=== PATIENT | male | born 2000 | race Hispanic/Latino ===

== ENCOUNTER 2021-11-11 00:29 | Emergency (ER) | payer OTHER ==
[~2021-11-11] VITALS: Ht 177.8 cm; Wt 154.7 kg
[2021-11-11] MEDS ORDERED: KETOROLAC 60 MG VIAL (30MG/ML) IM ONE (02:30)
[2021-11-11] MEDS ORDERED: SOLU-MEDROL 125MG VIAL IM ONE (02:30)
[2021-11-11 03:07] VITALS: BP 148/86
[2021-11-11] MEDS ORDERED: IBUP-2070 PO (03:36)
[2021-11-11] MEDS ORDERED: CEPH500B PO (03:36)
[2021-11-11] MEDS ORDERED: CEPHALEXIN 500 MG CAPSULE PO ONE (04:00)
== END 2021-11-11 03:53 | disposition home or self-care (01) ==
LOC: EDH 00:29
DX: S90.852A Superficial foreign body, left foot, initial encounter (principal); J45.909 Unspecified asthma, uncomplicated; Z79.1 Long term (current) use of non-steroidal anti-inflammatories (NSAID); Z79.52 Long term (current) use of systemic steroids; W45.8XXA Other foreign body or object entering through skin, initial encounter; Y93.89 Activity, other specified; Y92.89 Other specified places as the place of occurrence of the external cause; Y99.8 Other external cause status
CPT/HCPCS: 99284; 82948; 73630; 96372 ×2; J2930; J1885